=== PATIENT | male | born 1975 | race Caucasian/White ===

== ENCOUNTER 2016-10-07 13:20 | Emergency (ER) | payer MEDICARE, OTHER ==
[2016-10-07 13:48] LABS: BASOPHIL 0.5 % (0-2); EOSINOPHIL 0.5 % (0-5); HCT 43.8 % (42.0-52.0); LYMPHOCYTE 24.6 % (15-48); MCH 37.2 pg (25.0-31.0); MCHC 36.5 g/dL (32.0-36.0); MCV 101.9 fL (78.0-100.0); MONOCYTE 13.9 % (0-12); MPV 11.7 fL (6.0-9.5); NEUTROPHIL 60.5 % (41-80); RDW 14.9 % (11.5-14.0); WBC 5.7 K/uL (4.0-10.5)
[2016-10-07 13:49] LABS: PLT 60 K/uL (150-400)
[2016-10-07 13:58] LABS: ALBUMIN 4.7 g/dL (3.5-5.0); BILIRUBIN - TOTAL 1.7 mg/dL (0.1-1.0); CREATININE 0.8 mg/dL (0.7-1.2); GLOBULIN (CALCULATION) 2.5 g/dL (2.2-4.2); POTASSIUM 3.7 mmol/L (3.5-5.1); TOTAL PROTEIN 7.2 g/dL (6.4-8.3)
== END 2016-10-07 15:08 | disposition home or self-care (01) ==
LOC: FER 13:20
PROVIDERS: Emergency Medicine
DX: G40.909 Epilepsy, unspecified, not intractable, without status epilepticus (principal); R74.8 Abnormal levels of other serum enzymes; M54.2 Cervicalgia; F17.200 Nicotine dependence, unspecified, uncomplicated; Z79.899 Other long term (current) drug therapy
CPT/HCPCS: 36415; 72050; 80053; 85025; 99284; J2405

== ENCOUNTER 2020-08-27 00:06 | Emergency (ER) | payer MEDICARE, OTHER ==
[~2020-08-27 00:06] MED LIST: AMBIEN10 MG PO; DESYREL50 MG PO; Keppra PO; LEVETIRACETAM500 MG PO; LIBRIUM25 MG PO; TOPROL XL 25MG25 MG PO; TRAZODONE HCL50 MG PO
[2020-08-27 00:39] LABS: BASOPHIL 0.5 % (0-2); EOSINOPHIL 0.1 % (0-5); HCT 42.7 % (42.0-52.0); HGB 15.5 g/dl (13.2-18.0); LYMPHOCYTE 13.8 % (15-48); MCH 39.3 pg (25.0-31.0); MCHC 36.3 g/dL (32.0-36.0); MCV 108.4 fL (78.0-100.0); MONOCYTE 8.1 % (0-12); MPV 10.8 fL (6.0-9.5); NEUTROPHIL 76.9 % (41-80); NRBC 0; RBC 3.94 M/uL (4.70-6.00); RDW 14.9 % (11.5-14.0); WBC 8.8 K/uL (4.0-10.5)
[2020-08-27 01:06] LABS: PLT 95 K/uL (150-400)
[2020-08-27 01:13] LABS: PRO-BNP 45 pg/mL (<125)
[2020-08-27 01:41] LABS: BUN 11 mg/dL (7-18); CREATININE 0.89 mg/dL (0.67-1.17); GLUCOSE 167 mg/dL (74-106)
[2020-08-27 01:42] LABS: ALKALINE PHOSHATASE 141 U/L (46-116); ALT 104 U/L (16-63); AST 314 U/L (15-37); BILIRUBIN - TOTAL 1.4 mg/dL (0.2-1.0); CHLORIDE 96 mmol/L (98-107); CO2 (BICARBONATE) 17 mmol/L (21-32); GLOBULIN (CALCULATION) 3.4 g/dL; POTASSIUM 3.8 mmol/L (3.5-5.1); TOTAL PROTEIN 7.4 g/dL (6.4-8.2)
[2020-08-27 01:58] LABS: LACTIC ACID 11.1 mmol/L (0.4-1.9)
[2020-08-27 02:16] LABS: MAGNESIUM 1.6 mg/dL (1.8-2.4)
[2020-08-27] MEDS ORDERED: PREDNISONE 20MG20 MG PO (04:09)
[2020-08-27] MEDS ORDERED: TOPROL XL 25MG25 MG PO (04:09)
[2020-08-27] MEDS ORDERED: TESSALON PERLE100 MG PO (04:09)
[2020-08-27] MEDS ORDERED: ZPAK PO (04:09)
[2020-08-27 04:45] LABS: BILIRUBIN NEGATIVE (NEGATIVE); BLOOD NEGATIVE Ery/uL (NEGATIVE); CLARITY CLEAR (CLEAR); COLOR YELLOW (YELLOW); GLUCOSE (U) NORMAL (NORMAL); LEUKOCYTES NEGATIVE Leu/uL (NEGATIVE); NITRITE NEGATIVE (NEGATIVE); PROTEIN NEGATIVE (NEGATIVE); SPECIFIC GRAVITY <=1.005 (1.001-1.030); pH 6.5 (5.0-9.0)
[2020-08-27 04:51] LABS: MARIJUANA (THC) NEGATIVE (NEGATIVE)
[2020-08-27 04:52] LABS: AMPHETAMINES NEGATIVE (NEGATIVE); BARBITURATES POSITIVE (NEGATIVE); ECSTASY (MDMA) NEGATIVE (NEGATIVE); METHADONE NEGATIVE (NEGATIVE); OPIATES NEGATIVE (NEGATIVE); OXYCODONE NEGATIVE (NEGATIVE)
== END 2020-08-27 04:34 | disposition home or self-care (01) ==
LOC: FER 00:06
PROVIDERS: Emergency Medicine Emergency Medical Services
DX: G40.409 Other generalized epilepsy and epileptic syndromes, not intractable, without status epilepticus (principal); J44.1 Chronic obstructive pulmonary disease with (acute) exacerbation; R11.10 Vomiting, unspecified; R00.0 Tachycardia, unspecified; F17.210 Nicotine dependence, cigarettes, uncomplicated; Z79.899 Other long term (current) drug therapy
CPT/HCPCS: 36415; 70450; 71045; 80053; 80305; 81003; 83605; 83735; 83880; 84145; 84484; 85025; 85379; 87040; 93005; G0480; J1100; J1170; J1885; J1953; J2405; J7030; Q9967

== ENCOUNTER 2020-09-11 11:59 | Inpatient (IN) | payer MEDICARE, OTHER ==
[~2020-09-11 11:59] MED LIST changes: +PREDNISONE 20MG20 MG PO; +TESSALON PERLE100 MG PO; +ZPAK PO
[2020-09-11 12:42] LABS: BILIRUBIN NEGATIVE (NEGATIVE); BLOOD NEGATIVE Ery/uL (NEGATIVE); CLARITY CLEAR (CLEAR); COLOR YELLOW (YELLOW); GLUCOSE (U) NORMAL (NORMAL); LEUKOCYTES NEGATIVE Leu/uL (NEGATIVE); NITRITE NEGATIVE (NEGATIVE); PROTEIN NEGATIVE (NEGATIVE); UROBILINOGEN 0.2 mg/dL (0.2-1.0)
[2020-09-11 12:51] LABS: BASOPHIL 0.7 % (0-2); EOSINOPHIL 0.6 % (0-5); HCT 39.8 % (42.0-52.0); HGB 14.2 g/dl (13.2-18.0); MCH 39.7 pg (25.0-31.0); MCHC 35.7 g/dL (32.0-36.0); MCV 111.2 fL (78.0-100.0); MONOCYTE 9.2 % (0-12); MPV 10.8 fL (6.0-9.5); NEUTROPHIL 76.1 % (41-80); NRBC 0; PLT 110 K/uL (150-400); RBC 3.58 M/uL (4.70-6.00); RDW 14.5 % (11.5-14.0); WBC 6.8 K/uL (4.0-10.5)
[2020-09-11 13:04] LABS: ALBUMIN 3.9 g/dL (3.4-5.0); BILIRUBIN - TOTAL 0.8 mg/dL (0.2-1.0); BUN/CREAT RATIO (CALC) 13.9 RATIO; CREATININE 0.79 mg/dL (0.67-1.17); GLOBULIN (CALCULATION) 3.2 g/dL; POTASSIUM 3.7 mmol/L (3.5-5.1); TOTAL PROTEIN 7.1 g/dL (6.4-8.2)
[2020-09-11 13:53] LABS: AMPHETAMINES NEGATIVE (NEGATIVE); BARBITURATES NEGATIVE (NEGATIVE); ECSTASY (MDMA) NEGATIVE (NEGATIVE); MARIJUANA (THC) NEGATIVE (NEGATIVE); METHADONE NEGATIVE (NEGATIVE); OPIATES NEGATIVE (NEGATIVE); OXYCODONE NEGATIVE (NEGATIVE)
[2020-09-11] MEDS ORDERED: KEPPRA250 MG PO (20:48)
[2020-09-11] MEDS ORDERED: PAXIL20 MG PO (20:48)
[2020-09-12 06:17] LABS: BASOPHIL 0.8 % (0-2); EOSINOPHIL 0.6 % (0-5); HCT 38.4 % (42.0-52.0); HGB 13.3 g/dl (13.2-18.0); LYMPHOCYTE 20.7 % (15-48); MCH 40.2 pg (25.0-31.0); MCHC 34.6 g/dL (32.0-36.0); MONOCYTE 9.5 % (0-12); MPV 10.4 fL (6.0-9.5); NEUTROPHIL 68.2 % (41-80); NRBC 0; PLT 91 K/uL (150-400); RBC 3.31 M/uL (4.70-6.00); RDW 14.5 % (11.5-14.0); WBC 4.8 K/uL (4.0-10.5)
[2020-09-12 06:37] LABS: ALBUMIN 3.1 g/dL (3.4-5.0); BILIRUBIN - TOTAL 1.1 mg/dL (0.2-1.0); BUN/CREAT RATIO (CALC) 10.4 RATIO; CREATININE 0.67 mg/dL (0.67-1.17); GLOBULIN (CALCULATION) 3.1 g/dL; TOTAL PROTEIN 6.2 g/dL (6.4-8.2)
--- NOTE | 2020-09-13 15:19 | NUR ---
09/13/20 No discharge planning needs are anticipated.
[2020-09-14 04:15] LABS: INR 0.9 (0.9-1.2); PROTHROMBIN TIME 11.5 SECONDS (11.4-13.6)
[2020-09-14 04:23] LABS: ALBUMIN 3.3 g/dL (3.4-5.0); BILIRUBIN - TOTAL 0.4 mg/dL (0.2-1.0); BUN/CREAT RATIO (CALC) 11.5 RATIO; CREATININE 0.78 mg/dL (0.67-1.17); GLOBULIN (CALCULATION) 3.4 g/dL; POTASSIUM 3.6 mmol/L (3.5-5.1); TOTAL PROTEIN 6.7 g/dL (6.4-8.2)
[2020-09-14] MEDS ORDERED: LEVETIRACETAM500 MG PO (07:40)
[2020-09-14] MEDS ORDERED: LIBRIUM25 MG PO ×2 (07:43→08:32)
[2020-09-14] MEDS ORDERED: SEROQUEL 25MG T25 MG PO (08:31)
[2020-09-14] MEDS ORDERED: TOPROL XL 25MG25 MG PO (08:57)
== END 2020-09-14 09:19 | disposition home or self-care (01) | DRG 897 ==
LOC: FER 11:59 → FICU 17:30
PROVIDERS: Emergency Medicine; Nurse Practitioner Family; ADMIT Allergy & Immunology Allergy
DX: F10.231 Alcohol dependence with withdrawal delirium (principal); G40.509 Epileptic seizures related to external causes, not intractable, without status epilepticus; I10 Essential (primary) hypertension; G89.29 Other chronic pain; M54.9 Dorsalgia, unspecified; Z20.822 Contact with and (suspected) exposure to COVID-19; F32.9 Major depressive disorder, single episode, unspecified; F41.9 Anxiety disorder, unspecified; F40.00 Agoraphobia, unspecified; F17.200 Nicotine dependence, unspecified, uncomplicated; Z79.899 Other long term (current) drug therapy; Z88.5 Allergy status to narcotic agent; Z98.890 Other specified postprocedural states
CPT/HCPCS: 36415; 70450; 72220; 80053; 80305; 81003; 85025; 85610; G0480; J1953; J2060; J2560; J3411; J3475; J7030; J7120; U0002

== ENCOUNTER 2021-09-19 16:03 | Emergency (ER) | payer MEDICARE, OTHER ==
[~2021-09-19 16:03] MED LIST changes: +KEPPRA250 MG PO; +PAXIL20 MG PO; +SEROQUEL 25MG T25 MG PO
[2021-09-19 17:32] LABS: BASOPHIL 0.7 % (0-2); EOSINOPHIL 0.5 % (0-5); HCT 49.5 % (42.0-52.0); LYMPHOCYTE 13.4 % (15-48); MCH 38.5 pg (25.0-31.0); MCHC 34.3 g/dL (32.0-36.0); MONOCYTE 7.5 % (0-12); MPV 10.6 fL (6.0-9.5); NEUTROPHIL 77.5 % (41-80); NRBC 0; PLT 118 K/uL (150-400); RBC 4.42 M/uL (4.70-6.00); RDW 14.4 % (11.5-14.0); WBC 7.5 K/uL (4.0-10.5)
[2021-09-19 17:41] LABS: ALBUMIN 4.6 g/dL (3.4-5.0); ALKALINE PHOSHATASE 95 U/L (46-116); ALT 123 U/L (16-63); AST 195 U/L (15-37); BILIRUBIN - TOTAL 0.8 mg/dL (0.2-1.0); BUN 12 mg/dL (7-18); BUN/CREAT RATIO (CALC) 13.3 RATIO; CHLORIDE 98 mmol/L (98-107); CO2 (BICARBONATE) 20 mmol/L (21-32); CPK 172 U/L (39-308); GLOBULIN (CALCULATION) 3.6 g/dL; GLUCOSE 126 mg/dL (74-106); LIPASE 193 U/L (73-393); MAGNESIUM 2.1 mg/dL (1.8-2.4); POTASSIUM 4.3 mmol/L (3.5-5.1); TOTAL PROTEIN 8.2 g/dL (6.4-8.2)
[2021-09-19 19:46] LABS: BILIRUBIN NEGATIVE (NEGATIVE); BLOOD TRACE-INTACT Ery/uL (NEGATIVE); CLARITY CLEAR (CLEAR); COLOR ORANGE (YELLOW); GLUCOSE (U) NORMAL (NORMAL); LEUKOCYTES NEGATIVE Leu/uL (NEGATIVE); NITRITE NEGATIVE (NEGATIVE); PROTEIN 1+ mg/dL (NEGATIVE); SPECIFIC GRAVITY 1.025 (1.001-1.030)
[2021-09-19 19:49] LABS: AMPHETAMINES NEGATIVE (NEGATIVE); BARBITURATES NEGATIVE (NEGATIVE); ECSTASY (MDMA) NEGATIVE (NEGATIVE); MARIJUANA (THC) NEGATIVE (NEGATIVE); METHADONE NEGATIVE (NEGATIVE); OPIATES NEGATIVE (NEGATIVE); OXYCODONE NEGATIVE (NEGATIVE)
[2021-09-19 19:56] LABS: URINARY RBC RARE; URINARY WBC RARE
== END 2021-09-19 22:08 | disposition home or self-care (01) ==
LOC: FER 16:03
PROVIDERS: Emergency Medicine
DX: G40.909 Epilepsy, unspecified, not intractable, without status epilepticus (principal); R74.8 Abnormal levels of other serum enzymes; F17.210 Nicotine dependence, cigarettes, uncomplicated; Z88.5 Allergy status to narcotic agent; Z79.899 Other long term (current) drug therapy
CPT/HCPCS: 36415; 80053; 80305; 81001; 82550; 83605; 83690; 83735; 85025; 93005; G0480; J2405; J3411; J3475; J7030